=== PATIENT | male | born 1975 | race Caucasian/White ===

== ENCOUNTER 2020-12-05 09:10 | Emergency (ER) | payer OTHER ==
[2020-12-05] MEDS ORDERED: Diphtheria,Pertussis(Acell),Tetanus Vaccine 0.5 ML Syringe IM ONE (09:12)
--- NOTE | 2020-12-05 09:21 | EDM.PDOC ---
ED HPI GENERAL MEDICAL PROBLEM - General Chief Complaint: Upper Extremity Injury/Pain Stated Complaint: LACERATION TO TIP OF FINGER Time Seen by Provider: 12/05/20 09:11 Source of Information: Reports: Patient History Limitations: Reports: No Limitations - History of Present Illness INITIAL COMMENTS - FREE TEXT/NARRATIVE: 45-year-old male no relevant past medical history presents for right third digit fingertip amputation injury. 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 Denies any other injuries. R middle finger Pain Score (Numeric/FACES): 5 - Related Data Allergies Allergy/AdvReac Type Severity Reaction Status Date / Time No Known Allergies Allergy Verified 12/05/20 09:25 Home Meds: Home Meds . [No Known Home Meds] 12/05/20 [History] Review of Systems - Review of Systems Review Of Systems: Comprehensive ROS is negative, except as noted in HPI. ED EXAM, GENERAL - Physical Exam Exam: See Below Exam Limited By: No Limitations General Appearance: Alert, WD/WN, No Apparent Distress Throat/Mouth: Normal Voice, No Airway Compromise Head: Atraumatic, Normocephalic Neck: Normal Inspection Respiratory/Chest: No Respiratory Distress, No Accessory Muscle Use Cardiovascular: Normal Peripheral Pulses Extremities: Other (amputation of R third digit fingertip w/ small bony protuberance, proximal lunula intact, intact sensation and ROM ) Neurological: Alert Psychiatric: Normal Affect, Normal Mood Skin Exam: Warm, Dry, Intact, Normal Color Course - Vital Signs Last Recorded V/S: Last Vital Signs Temp 97.3 F 12/05/20 09:18 Pulse 86 12/05/20 09:18 Resp 18 12/05/20 09:18 BP 187/96 H 12/05/20 09:18 Pulse Ox 96 12/05/20 09:18 - Orders/Labs/Meds Orders: Active Orders 24 hr Category Date Time Status Vaccines to be Administered [RC] PER UNIT ROUTINE Care 12/05/20 09:12 Active Sodium Chloride 0.9% [Saline Flush] Med 12/05/20 09:32 Active 10 ml FLUSH ASDIRECTED PRN Sodium Chloride 0.9% [Saline Flush] Med 12/05/20 09:32 Active 2.5 ml FLUSH ASDIRECTED PRN Saline Lock Insert [OM.PC] Stat Oth 12/05/20 09:32 Ordered Medication Orders Sodium Chloride (Saline Flush) 10 ml FLUSH ASDIRECTED PRN PRN Reason: Keep Vein Open Last Admin: 12/05/20 09:42 Dose: 10 ml Documented by: SAMREEN Sodium Chloride (Saline Flush) 2.5 ml FLUSH ASDIRECTED PRN PRN Reason: Keep Vein Open Last Admin: 12/05/20 09:42 Dose: 2.5 ml Documented by: SAMREEN Meds: Medications Generic Name Dose Route Start Last Admin Trade Name Freq PRN Reason Stop Dose Admin Sodium Chloride 10 ml 12/05/20 09:32 12/05/20 09:42 Saline Flush FLUSH 10 ml ASDIRECTED PRN Administration Keep Vein Open Sodium Chloride 2.5 ml 12/05/20 09:32 12/05/20 09:42 Saline Flush FLUSH 2.5 ml ASDIRECTED PRN Administration Keep Vein Open Discontinued Medications Generic Name Dose Route Start Last Admin Trade Name Freq PRN Reason Stop Dose Admin Diphtheria/Tetanus/Acell Pertussis 0.5 ml 12/05/20 09:12 12/05/20 09:21 Boostrix IM 12/05/20 09:13 Not Given .ONCE ONE Cefazolin Sodium/Dextrose 1 gm 50 mls @ 100 mls/hr 12/05/20 09:33 12/05/20 09:41 / Premix IV 12/05/20 10:02 100 mls/hr ONETIME ONE Administration Lidocaine HCl Confirm 12/05/20 09:44 12/05/20 09:50 Xylocaine-Mpf 1% Administered 12/05/20 09:45 Not Given Dose 5 ml .ROUTE .STK-MED ONE Lidocaine HCl 5 ml 12/05/20 09:44 12/05/20 10:01 Xylocaine-Mpf 1% INJECT 12/05/20 09:45 5 ml ONETIME ONE Administration - Re-Assessments/Exams Free Text/Narrative Re-Assessment/Exam: 12/05/20 09:21 We will get x-ray imaging to evaluate for bony involvement. Patient's tetanus is already up-to-date. 12/05/20 09:35 Will give 1x dose ancef in ED, will clean and dress wound, will refer for hand surgery f/u in 1-3 days. 12/05/20 10:[address] Patterson who would like to see patient in his office tomorrow or Sunday. Information provided. Departure - Departure Time of Disposition: 10:10 Disposition: Home, Self-Care 01 Condition: Good Clinical Impression: Fingertip amputation Qualifiers: Encounter type: initial encounter Qualified Code(s): S68.119A - Complete traumatic metacarpophalangeal amputation of unspecified finger, initial encounter - Discharge Information Instructions: Traumatic Finger Amputation Referrals: PCP,None [Primary Care Provider] - Forms: ED Department Discharge Additional Instructions: Your x-ray shows bony involvement of a fingertip amputation injury. You need to follow-up with hand surgery in the next 1 to 2 days. I spoke with hand surgery at [facility] in [place] and he agrees to see you either tomorrow or Sunday. Please call his office to set up an appointment. Information provided below. I have also sent antibiotics your pharmacy to help prevent infection. Dr. Amalia Patterson [address] [place] [address], [place] [address] [place] [address] The following information is given to patients seen in the emergency department who are being discharged to home. This information is to outline your options for follow-up care. We provide all patients seen in our emergency department with a follow-up referral. The need for follow-up, as well as the timing and circumstances, are variable depending upon the specifics of your emergency department visit. If you don't have a primary care physician on staff, we will provide you with a referral. We always advise you to contact your personal physician following an emergency department visit to inform them of the circumstance of the visit and for follow-up with them and/or the need for any referrals to a consulting specialist. The emergency department will also refer you to a specialist when appropriate. This referral assures that you have the opportunity for follow-up care with a specialist. All of these measure are taken in an effort to provide you with optimal care, which includes your follow-up. Under all circumstances we always encourage you to contact your private physician who remains a resource for coordinating your care. When calling for follow-up care, please make the office aware that this follow-up is from your recent emergency room visit. If for any reason you are refused follow-up, please contact the [facility] Emergency Department at and asked to speak to the emergency department charge nurse. Please follow up with your primary care physician. If you do not have a primary care physician, see below: [facility] [address] [place] [address] [facility] [address] [place], [place] [id number] [facility] [address] [place] [address] Sepsis Event Note (ED) - Focused Exam Vital Signs: Vital Signs Temp Pulse Resp BP Pulse Ox 12/05/20 09:18 97.3 F 86 18 187/96 H 96 - My Orders Last 24 Hours: My Active Orders 12/05/20 09:12 Vaccines to be Administered [RC] PER UNIT ROUTINE 12/05/20 09:32 Sodium Chloride 0.9% [Saline Flush] 10 ml FLUSH ASDIRECTED PRN Sodium Chloride 0.9% [Saline Flush] 2.5 ml FLUSH ASDIRECTED PRN Saline Lock Insert [OM.PC] Stat - Assessment/Plan Last 24 Hours: My Active Orders 12/05/20 09:12 Vaccines to be Administered [RC] PER UNIT ROUTINE 12/05/20 09:32 Sodium Chloride 0.9% [Saline Flush] 10 ml FLUSH ASDIRECTED PRN Sodium Chloride 0.9% [Saline Flush] 2.5 ml FLUSH ASDIRECTED PRN Saline Lock Insert [OM.PC] Stat
[2020-12-05] MEDS ORDERED: Sodium Chloride 0.9% 10 ML Syringe FLUSH PRN (09:32)
[2020-12-05] MEDS ORDERED: Sodium Chloride 0.9% 2.5 ML Syringe FLUSH PRN (09:32)
[2020-12-05] MEDS ORDERED: ceFAZolin 1 GM in Premix Bag 1 BAG IV ONE (09:33)
--- NOTE | 2020-12-05 09:47 | CR ---
INDICATION: Amputation injury. TECHNIQUE: Two views of the right hand. COMPARISON: None. FINDINGS: Acute amputation of the middle finger tip with loss of much of the distal filled Johanny tuft. Otherwise unremarkable. IMPRESSION: Acute right middle finger tip amputation with loss of much of the distal phalangeal tuft. Dictated by Didier Rivera MD @ Dec 05 2020 9:44AM Signed by Dr. Didier Rivera @ Dec 05 2020 9:46AM
== END 2020-12-05 10:30 | disposition home or self-care (01) ==
LOC: MW.ED 09:10
DX: S68.622A Partial traumatic transphalangeal amputation of right middle finger, initial encounter (principal); W31.9XXA Contact with unspecified machinery, initial encounter; Y99.0 Civilian activity done for income or pay
CPT/HCPCS: 73120; 96365; 99284; J0690; J2001

== ENCOUNTER 2022-01-17 08:55 | Emergency (ER) | payer BC, OTHER ==
[2022-01-17] MEDS ORDERED: Indomethacin 25 MG Cap PO ONE (09:11)
[2022-01-17] MEDS ORDERED: Acetaminophen 500 MG Tab PO ONE (09:11)
== END 2022-01-17 10:44 | disposition home or self-care (01) ==
LOC: MW.ED 08:55
DX: M25.572 Pain in left ankle and joints of left foot (principal)
CPT/HCPCS: 73610; 93971; 99284; A9270; 99283